=== PATIENT | female | born 1980 | race Caucasian/White ===

== ENCOUNTER 2019-05-12 19:49 | Emergency (ER) | END 2019-05-12 22:14 | disposition home or self-care (01) | DX: F15.90 Other stimulant use, unspecified, uncomplicated (principal); Z90.710 Acquired absence of both cervix and uterus; Z88.8 Allergy status to other drugs, medicaments and biological substances; Z79.899 Other long term (current) drug therapy | CPT/HCPCS: 36415; 80048; 80076; 80307; 81000; 81001; 82140; 84443; 84484; 84703; 85025; 85730; 93005; 99284; G0480 ×2; G0481 ==